=== PATIENT | female | born 1990 | race Caucasian/White ===

== ENCOUNTER 2022-05-16 00:36 | Observation (INO) | payer BC ==
[~2022-05-16] VITALS: Ht 182.9 cm; Wt 117.9 kg
[2022-05-16] MEDS ORDERED: DIPHENHYDRAMINE HCL INJ 50 MG/ML VIAL IV PRN (01:30)
[2022-05-16] MEDS ORDERED: ONDANSETRON HCL INJ 2MG/ML 2ML 2 MG/ML VIAL IV PRN (01:30)
[2022-05-16] MEDS ORDERED: ACETAMINOPHEN 325 MG TAB PO PRN (01:30)
[2022-05-16] MEDS ORDERED: ASPIRIN 81 MG CHEW TAB PO ONE (01:30)
[2022-05-16 04:00] VITALS: BP 122/79
[2022-05-16] MEDS ORDERED: BREZTRI AEROS10.7 GM (04:14)
[2022-05-16] MEDS ORDERED: ALBUTEROL0.63 MG/3 NEB (04:14)
[2022-05-16] MEDS ORDERED: CLONAZEPAM0.5 MG PO (04:14)
[2022-05-16] MEDS ORDERED: NEXIUM40 MG PO (04:17)
[2022-05-16 04:20] VITALS: BP 122/79
[2022-05-16 04:36] VITALS: BP 122/79
[2022-05-16 07:31] LABS: CREATINE KINASE 44 IU/L (29-168)
[2022-05-16 07:42] LABS: FREE THYROXINE INDEX 2.124 (1.4-3.8); THYROID STIMULATING HORMONE 0.409 uIU/mL (0.350-4.940)
[2022-05-16 07:52] VITALS: BP 107/58
[2022-05-16 11:28] VITALS: BP 114/69
[2022-05-16 14:48] LABS: CREATINE KINASE 38 IU/L (29-168)
[2022-05-16 16:16] VITALS: BP 125/82
== END 2022-05-16 16:43 | disposition home or self-care (01) ==
LOC: FSED 00:43 → ERHOLD 01:28 → MED/SURG2 03:38
PROVIDERS: ADMIT Family Medicine; ATTEND Family Medicine
DX: R07.2 Precordial pain (principal); I49.8 Other specified cardiac arrhythmias; J45.909 Unspecified asthma, uncomplicated; R00.2 Palpitations; K21.9 Gastro-esophageal reflux disease without esophagitis; F41.9 Anxiety disorder, unspecified; Z88.2 Allergy status to sulfonamides; Z20.822 Contact with and (suspected) exposure to COVID-19
CPT/HCPCS: 36415; 71046; 80053; 81003; 81025; 82550; 82553; 84436; 84443; 84479; 84484; 85025; 85379; 93005; 93306; 99284; G0378; U0002